=== PATIENT | male | born 2000 | race American Indian/Alaskan Native ===

== ENCOUNTER 2023-11-13 14:58 | Outpatient (CLI) | payer OTHER | END 2023-11-13 23:59 | disposition home or self-care (01) | LOC: MRI02 14:58 | PROVIDERS: ATTEND Family Medicine Sports Medicine | DX: M84.359A Stress fracture, hip, unspecified, initial encounter for fracture (principal); X58.XXXA Exposure to other specified factors, initial encounter; Y93.89 Activity, other specified; Y92.89 Other specified places as the place of occurrence of the external cause; Y99.8 Other external cause status | CPT/HCPCS: 73721 ==